=== PATIENT | female | born 1975 | race American Indian/Alaskan Native ===

== ENCOUNTER 2022-04-06 16:45 | Emergency (ER) | payer OTHER, SELFPAY ==
[2022-04-06 16:50] VITALS: PULSE 82; O2SAT 95
[2022-04-06 16:51] VITALS: BP 148/82; PULSE 74; RESP 16; TEMP 36.7; O2SAT 100; BMI 33.5
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
[2022-04-06 17:07] VITALS: PULSE 70; O2SAT 99
[2022-04-06] MEDS: ACETAMINOPHEN 325 MG TABLET 975 MG PO (17:28)
[2022-04-06 17:30] VITALS: PULSE 81; O2SAT 99
--- NOTE | 2022-04-06 17:35 | PC.NURSE ---
c collar removed from patient. Dr. Ani parkered and aware.
[2022-04-06 18:00] VITALS: PULSE 66; O2SAT 100
[2022-04-06 18:07] VITALS: BP 154/84; PULSE 69; O2SAT 98
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
== END 2022-04-06 18:30 | disposition home or self-care (01) ==
PROVIDERS: Emergency Provider Emergency Medicine
DX: S16.1XXA Strain of muscle, fascia and tendon at neck level, initial encounter (principal); V89.2XXA Person injured in unspecified motor-vehicle accident, traffic, initial encounter
CPT/HCPCS: 70450; 71045; 72125; 99284